=== PATIENT | female | born 1995 | race African-American/Black ===

== ENCOUNTER 2017-02-16 15:24 | Emergency (ER) | payer SELFPAY ==
[2017-02-16 15:28] VITALS: BP 133/94; BMI 23.3
--- NOTE | 2017-02-16 15:54 | DR.GENAD ---
HPI - PCP Primary Care Physician: yariel - HPI Comment HPI Comment: PATIENT HAVE YELLOW VAGINAL DISCHARGE. NO PRURITUS. ON DEPOT SHOT. PATIENT ABDOMEN APPEAR GAVID. SHE IS NOT AWARE OF BEING . - Complaint/Symptoms Chief Complaint Doctors Comments: VAGINAL DISCHARGE TIMES 3 WEEKS Chief Complaint:: patient stated she has had a yellow discharge for 3 weeks from her vagina. - Nurses notes reviewed Nurses Notes Review: Yes - Mode of Arrival Mode of Arrival: Ambulatory - Timing Onset of Chief Complaint: 01/26/17 Came on: Gradually - Duration Duration: Constant Duration: Weeks - Severity Severity: Moderate PMH - PMH Past Medical History: No Past Surgical History: No - Family History History of Family Medical Conditions: No - Social History Does patient currently use any type of tobacco product: No Have you used tobacco products in the last 12 months: No Type of Tobacco Use: None Does any household member use tobacco: No Alcohol Use: None Do you use any recreational Drugs:: No Lives With: Family Lives Where: Home - infectious screening In the last 2 months have you had wt loss of >10#?: NO Have you had fever, night sweats or hemotysis?: No Have you traveled outside the country in the last 6 months?: No Isolation: Standard ROS - Review of Systems Constitutional: No Symptoms Reported Eyes: No Symptoms Reported ENTM: No Symptoms Reported Respiratoy: No Symptoms Reported Cardiovascular: No Symptoms Reported Gastrointestinal/Abdominal: No Symptoms Reported Genitourinary: No Symptoms Reported Neurological: No Symptoms Reported Musculoskeletal: No Symptoms Reported Integumentary: No Symptoms Reported Hematologic/Lymphatic: No Symptoms Reported Endocrine: No Symptoms Reported All Other Systems: Reviewed and Negative PE - Vital Signs Vitals: Temperature 98.5 F Pulse Rate 93 Respiratory Rate 16 Blood Pressure [Right Arm] 108/63 Blood Pressure 133/94 O2 Sat by Pulse Oximetry 100 - General Limitations: No Limitations General Appearance: Alert - Head Head Exam: Normal Inspection - Eyes Eye exam: Normal Appearance - ENT ENT Exam: Normal External Ear Exam TM/Canal Exam: Bilateral Normal Mouth Exam: Normal Inspection Throat Exam: Normal Inspection - Neck Neck Exam: Normal Inspection - Chest Chest Inspection: Normal Inspection - Respiratory Respiratory Exam: Normal Lung Sounds Bilat Respiratory Exam: Bilateral Clear to Auscultation - Cardiovascular Cardiovascular Exam: Regular Rate, Normal Rhythm, Normal Heart Sounds - Abdominal Exam Abdominal Exam: Normal Bowel Sounds, Soft, Other (GRAVID UTERUS). negative: Tenderness - Extremities Extremities Exam: Normal Inspection - Back Back Exam: Normal Inspection - Neurologic Neurological Exam: Alert, Oriented X3 - Skin Skin Exam: Other (PELVIC EXAM, VAGINAL DISCHRGE.GRAVID UTERUS) MDM - Differential Diagnosis Differential Diagnosis: VAGINAL DISCHAGE, GONRHHEA, CLAMYDIA, Course - Treatment Treatment: SEE ORDERS. US CONFIRM 17 WEEKS . VIABLE FETUS. - Education/Counseling Education/Counseling: Patient, Education Educated On: Treatment, Diagnosis, Needs for Follow Up ROR - Labs Reviewed Laboratory: 02/16/17 16:26 Vaginal DEVON Preparation - Final 02/16/17 16:26 Vaginal Wet Prep - Final HCG, Qual Positive >10 mIU/mL 02/16/17 16:28 HCG, Quant 34976 mIU/mL (0-6) H 02/16/17 16:28 Specimen Type Clean catch urine 02/16/17 16:00 Urine Color Yellow (YELLOW) 02/16/17 16:00 Urine Appearance Hazy (CLEAR) 02/16/17 16:00 Urine pH 6.5 (5.0 - 8.0) 02/16/17 16:00 Ur Specific Randolph 1.020 (1.000-1.030) 02/16/17 16:00 Urine Protein Negative (NEGATIVE) 02/16/17 16:00 Urine Glucose (UA) Negative (NEGATIVE) 02/16/17 16:00 Urine Ketones Negative (NEGATIVE) 02/16/17 16:00 Urine Occult Blood Negative (NEGATIVE) 02/16/17 16:00 Urine Nitrite Negative (NEGATIVE) 02/16/17 16:00 Urine Bilirubin Negative (NEGATIVE) 02/16/17 16:00 Urine Urobilinogen 1+ (NORMAL) 02/16/17 16:00 Ur Leukocyte Esterase 3+ (NEGATIVE) 02/16/17 16:00 Urine RBC 0-2 /HPF (NEGATIVE) 02/16/17 16:00 Urine WBC 3-5 /HPF (NEGATIVE) 02/16/17 16:00 Ur Squamous Epith Cells Few /HPF (NEGATIVE) 02/16/17 16:00 Urine Bacteria Trace /HPF (NEGATIVE) 02/16/17 16:00 Ur Culture Indicated? No/not indicated 02/16/17 16:00 Ur C. trach DNA (PCR) Not detected (NOT DETECT) 02/16/17 15:46 U N.gonorrhoeae DNA PCR Detected (NOT DETECT) A 02/16/17 15:46 - XRAY XRAY Interpreted by: Radiologist XRAY Findings: REPORT DISCUSS WITH PATIENT. - Diagnosis Discharge Problem: Vaginitis affecting in second trimester, antepartum, Gonorrhea affecting Qualifiers: Weeks of gestation: 17 weeks Qualified Code(s): Z3A.17 - 17 weeks gestation of - Discharge Plan Disposition: 01 HOME, SELF-CARE Condition: Stable - Follow ups/Referrals Follow ups/Referrals: [facility],None [Primary Care Provider] - 3 days LOGAN MALIK [STAFF PHYSICIAN] - 3 days - Instructions Instructions: Vaginitis, [id number], and Sexually Transmitted Diseases Additional Instructions: RETURN TO ED IF WORSE.
[2017-02-16 16:21] LABS: BILIRUBIN,URINE NEGATIVE (NEGATIVE); BLOOD/HEMOGLOBIN,URINE NEGATIVE (NEGATIVE); GLUCOSE, URINE NEGATIVE (NEGATIVE); KETONES,URINE NEGATIVE (NEGATIVE); LEUKOCYTE ESTERASE ,URINE 3+ (NEGATIVE); NITRITES,URINE NEGATIVE (NEGATIVE); PH,URINE 6.5 (5.0 - 8.0); PROTEIN,URINE NEGATIVE (NEGATIVE); UROBILINOGEN,URINE 1+ (NORMAL)
[2017-02-16 16:31] LABS: APPEARANCE,URINE HAZY (CLEAR); BACTERIA,URINE TRACE /HPF (NEGATIVE); COLOR,URINE YELLOW (YELLOW); RBC,URINE 0-2 /HPF (NEGATIVE); SQUAMOUS EPITHELIAL CELL,UR FEW /HPF (NEGATIVE)
[2017-02-16 16:48] LABS: SERUM PREGNANCY TEST, QUAL POSITIVE >10 mIU/mL
[2017-02-16 18:02] LABS: CHLAMYDIA TRACH URINE NOT DETECTED (NOT DETECT)
--- NOTE | 2017-02-16 19:51 | US ---
HISTORY: Yellow discharge for 3 weeks. Unknown LMP. Study: OB ultrasound greater than 14 weeks Comparison: None. Technique: Multiple grayscale and color flow Doppler images of the pelvis were obtained with focused evaluation of the fetus. Findings: A viable single intrauterine is identified with heart tones of 152 beats per minute. A transverse presentation is observed with a fundal placenta. Amniotic fluid volume appears abigail l. Evaluation of the anatomy including the urinary bladder, and four-chamber heart are unremar kable. The extremities are normal in their sonographic appearance. A three-vessel cord is observed . Cord insertion appears normal. No intracranial abnormality can be identified. Value Estimated Gestational Age BPD 3.8 cm 17 weeks 4 days HC 13.3 cm 16 weeks 6 days AC 11.6 cm 17 weeks 2 days FL 2.6 cm 17 weeks 6 days IMPRESSION: 1. Single intrauterine with an average ultrasound age of 17 weeks 3 days correspond to an estimated date of delivery of July 24, 2017. 2. No anatomical abnormalities can be identified. Reported By:
[2017-02-16] MEDS ORDERED: ROCEPHIN VIAL 1 GM IM ONE (20:00)
[2017-02-16] MEDS ORDERED: ROCEPHIN VIAL 1 GM ONE (20:09)
[2017-02-16] MEDS ORDERED: XYLOCAINE 1 % (PLAIN) ONE (20:09)
== END 2017-02-16 20:28 | disposition home or self-care (01) ==
LOC: ER 15:31
DX: N76.0 Acute vaginitis (principal); A54.9 Gonococcal infection, unspecified; Z3A.17 17 weeks gestation of pregnancy
CPT/HCPCS: 36415; 76815; 81001; 84702; 84703; 87210; 87491; 87591; 96372; 99283; 99284; J0696; J2001

== ENCOUNTER 2024-09-14 06:39 | Inpatient (IN) ==
[2024-09-14] MEDS ORDERED: NUBAIN INJ 20 MG AMP IVP PRN (06:49)
[2024-09-14] MEDS ORDERED: ZOFRAN INJ 4 MG VIAL IVP PRN (06:49)
[2024-09-14] MEDS ORDERED: REGLAN INJ 10 MG VIAL IVP PRN (06:49)
[2024-09-14] MEDS: D5 1/2 NS 1,000 ML 1,000 ML IV ONE (06:55)
--- NOTE | 2024-09-14 07:18 | DR.OB ---
OB QUICK NOTE Assessment/Plan (1) Elective induction of labor planned: Assessment/Plan: L&D 09/24/24 at 7:10am S-No complaint. O-Afebrile,VSS MIC=308 with good LTV, +accel, no decel. CTX=mild, irregular CVX=2cm/50%/-1/VTX AROM with clear fluid. IUPC and FSE placed. A-IUP at 39 1/7 weeks for induction P-Begin pitocin induction F/U labs Anticipate
[2024-09-14] MEDS: OXYTOCIN 20 UNIT/1,000 ML-NS 20 UNIT/1,000 ML PLAST..BAG IV PRN (07:20)
[2024-09-14] MEDS: D5 1/2 NS 1,000 ML 1,000 ML IV SCH (08:09)
[2024-09-14] MEDS: LR 1,000 ML IV 1,000 ML IV ONE (08:47)
[2024-09-14] MEDS: BETADINE SOLN ONE (08:47)
[2024-09-14] MEDS: PITOCIN ONE (08:48)
[2024-09-14] MEDS: FENTANYL VIAL INJ 100 mcg ONE (09:20)
[2024-09-14] MEDS: NAROPIN EPIDURAL 0.2% 100 ML ONE (09:20)
--- NOTE | 2024-09-14 12:19 | DR.OB ---
OB QUICK NOTE Assessment/Plan (1) Elective induction of labor planned: Assessment/Plan: L&D 09/14/24 at 12:15pm Pitocin=16mu/min. S-No complaint. s/p epidural. O-Afebrile,VSS OZV=158 with good LTV, +accel, no decel. CTX=q 1 1/2 to 2 min., about 45-65mmHg CVX=7cm/80%/0/VTX A-IUP at 39 1/7 weeks for induction P-Continue pitocin induction Anticipate
[2024-09-14] MEDS: PITOCIN IVP ONE (13:50)
[2024-09-14] MEDS ORDERED: MOTRIN TAB 800 MG PO PRN (13:53)
--- NOTE | 2024-09-14 13:53 | DR.OB ---
OB QUICK NOTE Assessment/Plan (1) Elective induction of labor planned: Assessment/Plan: Delivery Note CASH APPLICATIONS REPRESENTATIVE 09/14/24 at 13:42 Patient complete and pushing. Mother and in stable condition. Head delivered over intact perineum. No nuchal cord. Nose and mouth bulb suctioned. Body delivered over intact perineum. Cord clamped x 2 and cut. handed to attendant. Cord sent for gases. Placenta delivered spontaneously / intact / 3 vessel cord. No CVX / vaginal / perineal tears noted. Viable female delivered by , VTX/OA, wt=7'7" and 8/9, stable to NBN. Mother stable to RR. JCR=340hw.
[2024-09-14] MEDS ORDERED: AMBIEN PO PRN (14:19)
[2024-09-14] MEDS ORDERED: MILK OF MAGNESIA PO PRN (14:19)
[2024-09-14] MEDS: OXYTOCIN 20 UNIT/1,000 ML-NS 20 UNIT/1,000 ML PLAST..BAG IV SCH (15:30)
[2024-09-14] MEDS: MOTRIN TAB 800 MG PO PRN (16:28)
[2024-09-14] MEDS: DERMOPLAST PAIN RELIEF SPRAY TOP PRN (16:30)
[2024-09-14] MEDS: ADACEL or BOOSTRIX TDaP VACCINE IM ONE (23:03)
[2024-09-15 04:55] LABS: HEMATOCRIT 28.1 % (36.0-47.0); HEMOGLOBIN 9.3 g/dL (12.0-16.0)
[2024-09-15] MEDS: PROTONIX TAB 40 MG PO SCH (08:17)
[2024-09-15 08:18] VITALS: RESP 20
[2024-09-15] MEDS: DEPO-PROVERA CONTRACEPTIVE INJ IM ONE (08:18)
[2024-09-15] MEDS: PRENATAL PLUS PO SCH (08:25)
[2024-09-15 10:08] VITALS: O2SAT 99
[2024-09-15 14:08] VITALS: BP 113/69; PULSE 88; TEMP 98.6
== END 2024-09-15 16:00 | disposition home or self-care (01) | DRG 807 ==
LOC: LD 06:39 → MED/SURG 15:28
PROVIDERS: ADMIT Specialist; ATTEND Specialist
DX: Z01.812 Encounter for preprocedural laboratory examination; Z3A.39 39 weeks gestation of pregnancy; K21.9 Gastro-esophageal reflux disease without esophagitis; Z37.0 Single live birth; O99.613 Diseases of the digestive system complicating pregnancy, third trimester